=== PATIENT | female | born 1945 | race Caucasian/White ===

== ENCOUNTER 2018-01-11 14:38 | Outpatient (CLI) | payer MEDICARE, BC ==
--- NOTE | 2018-01-11 16:21 | RAD ---
CHEST TWO VIEWS: INDICATIONS: Bronchitis. COMPARISON: 07/06/2013 FINDINGS: There is mild hyperinflation of the lungs. No lobar consolidation, effusion, or discrete pneumothora x. The cardiac silhouette is stable in size. There is vascular calcification. IMPRESSION: 1. No focal consolidation. 2. Hyperinflated lungs. Correlate for evidence of COPD. POS: [facility]
== END 2018-01-11 14:39 | disposition home or self-care (01) ==
LOC: SCSRAD 14:38
PROVIDERS: ATTEND Nurse Practitioner Family
DX: J40 Bronchitis, not specified as acute or chronic (principal); J44.9 Chronic obstructive pulmonary disease, unspecified
CPT/HCPCS: 71046